=== PATIENT | female | born 1960 | race Caucasian/White ===

== ENCOUNTER 2020-12-21 14:22 | Emergency (ER) | payer OTHER ==
--- OUTSIDE RECORDS SUMMARY | 2020-12-21 14:24 | XMS REPORT | Continuity of Care Document ---
:[address] [facility] t Address [address] [place] [address] Care Team Providers Name Role Phone Doug Neumann DO Attending Clinician Ritesh Luong MD Attending Clinician Doctor Unassigned, Name Attending Clinician Unavailable Taiwo GALDAMEZ Attending Clinician Lab, [facility] [address] Attending Clinician Unavailable Problems This patient has no known problems. Allergies, Adverse Reactions, Alerts This patient has no known allergies or adverse reactions. Medications This patient has no known medications. Procedures This patient has no known procedures. Encounters Start End Encounter Admission Attending Care Care Encounter Source Date/Time Date/Time Type Type Clinicians Facility Department ID 2020-12-17 2020-12-17 Patient BONNIE Neumann [id number] 00:00:00 00:00:00 Outreach Chandrakant NEGRETE [id number] Doug CARE [id number] [place] [id number] 2020-12-05 2020-12-05 Refill BONNIE Luong [id number] 00:00:00 00:00:00 Blanka LOVELL [id number] MEDICINE [id number] [facility] - [id number] [address] 2020-12-05 2020-12-05 Refill Doctor GAFREDRICK [id number] 00:00:00 00:00:00 Unassigned, FAMILY [id number] [place] MEDICINE [id number] [facility] [id number] [address] 2020-10-13 2020-10-13 Telephone Ag [facility] [id number] 00:00:00 00:00:00 Blanka LOVELL [id number] MEDICINE [id number] [place] [id number] [address] 2020-09-26 2020-09-26 Refill Ag [facility] [id number] 00:00:00 00:00:00 Blanka LOVELL [id number] MEDICINE [id number] [place] [id number] [address] 2020-09-23 2020-09-23 Orders Doctor ZAHEER [id number] 00:00:00 00:00:00 Only Unassigned, JENNIFER [id number] [facility] [id number] 2020-09-21 2020-09-21 Telephone Taiwo [facility] [id number] 00:00:00 00:00:00 Sienna LOVELL [id number] MEDICINE [id number] [facility] [id number] [address] 2020-09-19 2020-09-19 Hospital Taiwo [facility] [id number] 13:37:48 23:59:00 Encounter Sienna Alfaro [id number] Pediatric [id number] [place] [id number] 2020-09-19 2020-09-19 [employer] [facility], [place] [facility] [id number] 14:02:45 16:36:32 [place] [facility] [place] FAMILY [id number] MEDICINE [id number] [facility] [id number] [address] Results This patient has no known results.
[2020-12-21 15:00] LABS: Absolute Lymphocytes (CBC) 2.4 K/uL (0.7-4.9); Basophils % 0.6 % (0-1.3); Lymphocytes % 26.8 % (15.3-44.8); MPV 7.9 fL (7.6-11.3); RBC Red Blood Cell Count 4.81 M/uL (3.86-4.86)
[2020-12-21 15:07] LABS: ALT/SGPT 20 U/L (12-78); AST/SGOT 15 U/L (15-37); Albumin 3.4 g/dL (3.4-5.0); Alkaline Phosphatase 70 U/L (45-117); BUN Blood Urea Nitrogen 9 mg/dL (7-18); Bicarbonate 31 mmol/L (21-32); Bilirubin Direct < 0.1 mg/dL (0-0.2); Bilirubin Total 0.3 mg/dL (0.2-1.0); Glucose Level 102 mg/dL (74-106); Magnesium 2.1 mg/dL (1.8-2.4); NT PRO-BNP 51 pg/mL (<125); Potassium 3.9 mmol/L (3.5-5.1); Protein, Total 7.3 g/dL (6.4-8.2); Sodium Level 142 mmol/L (136-145); Troponin (Emerg Dept Use Only) < 0.02 ng/mL (0.0-0.045)
--- NOTE | 2020-12-21 15:16 | RAD REPORT ---
EXAM DESCRIPTION: RAD - Chest Single View - 12/21/2020 2:52 pm CLINICAL HISTORY: CHEST PAIN COMPARISON: None TECHNIQUE: AP portable chest image was obtained 12/21/2020 2:52 pm . FINDINGS: Lungs are clear. Heart and vasculature are normal. No measurable pleural effusion and no p neumothorax. No acute bony abnormality seen. No acute aortic findings suspected. IMPRESSION: No acute cardiopulmonary process.
--- NOTE | 2020-12-21 16:50 | EDPHYS ---
Physician Documentation [facility] Name: Claudia Cha Age: 60 yrs Sex: Female : 1960 Arrival Date: 12/21/2020 Time: 14:22 Bed 8 Private MD: ED Physician Navjot Morris HPI: 12/21 14:26 This 60 yrs old Female presents to ER via Unassigned with complaints of High ps1 Blood Pressure. 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 went to [facility] for elevated ps1 BP. States that she has had intermittent chest pain for last week. Non radiating. Pain seems to be improving. Came in by EMS after staff at [facility] told her that she was having acute UT. No STEMI on EKG. . Historical: - Allergies: 14:30 Bactrim; ss 14:30 PENICILLINS; ss - PMHx: 14:30 Hypertension; ss 14:32 COPD; ss - Immunization history:: Adult Immunizations unknown. - Social history:: Smoking status: Patient reports the use of cigarette tobacco products, smokes one-half pack cigarettes per day. ROS: 14:26 Constitutional: Negative for fever, chills, and weight loss, Eyes: Negative for injury, ps1 pain, redness, and discharge, Respiratory: Negative for shortness of breath, cough, wheezing, and pleuritic chest pain. 14:26 Cardiovascular: Positive for chest pain, with cough. 14:26 Abdomen/GI: Negative for nausea, vomiting, and diarrhea. 14:26 Skin: Negative for rash. 14:26 Neuro: Negative for dizziness. Exam: 14:26 Constitutional: This is a well developed, well nourished patient who is awake, alert, ps1 and in no acute distress. Head/Face: Normocephalic, atraumatic. Cardiovascular: Regular rate and rhythm. No gallops, murmurs, or rubs. Normal PMI, no JVD. No pulse deficits. Respiratory: Lungs have equal breath sounds bilaterally, clear to auscultation and percussion. No rales, rhonchi or wheezes noted. No increased work of breathing, no retractions or nasal flaring. Abdomen/GI: Soft, non-tender, with normal bowel sounds. No distension or tympany. No guarding or rebound. No evidence of tenderness throughout. Skin: Warm, dry with normal turgor. Normal color with no rashes, no lesions, and no evidence of cellulitis. MS/ Extremity: Pulses equal, no cyanosis. Neurovascular intact. Full, normal range of motion. Neuro: Awake and alert, GCS 15, oriented to person, place, time, and situation. Cranial nerves II-XII grossly intact. Sensory grossly intact. Psych: Awake, alert, with orientation to person, place and time. Behavior, mood, and affect are within normal limits. Vital Signs: 14:25 BP 189 / 100; Pulse 86; Resp 16; Temp 98.3(O); Pulse Ox 97% on R/A; Weight 71.67 kg; ss Height 5 ft. 6 in. (167.64 cm); Pain 0/10; 14:25 Body Mass Index 25.50 (71.67 kg, 167.64 cm) ss MDM: 14:26 Patient medically screened. ps1 16:52 Data reviewed: vital signs, nurses notes, EMS record, lab test result(s), EKG, ps1 radiologic studies, and as a result, I will discharge patient. Counseling: I had a detailed discussion with the patient and/or guardian regarding: the historical points, exam findings, and any diagnostic results supporting the discharge/admit diagnosis, the presence of at least one elevated blood pressure reading (>120/80) during this emergency department visit, lab results, radiology results, the need for outpatient follow up, to return to the emergency department if symptoms worsen or persist or if there are any questions or concerns that arise at home, smoking cessation. Special discussion: Based on the patient's history, exam, and Dx evaluation, there is no indication for emergent intervention or inpatient Tx. It is understood by the patient/guardian that if the Sx's persist or worsen they need to return immediately for re-evaluation. 12/21 14:25 Order name: Basic Metabolic Panel 12/21 14:25 Order name: CBC with Diff 12/21 14:25 Order name: LFT's 12/21 14:25 Order name: Magnesium ps1 12/21 14:25 Order name: NT PRO-BNP; Complete Time: 15:21 12/21 14:25 Order name: Troponin (emerg Dept Use Only); Complete Time: 15:21 12/21 14:25 Order name: XRAY Chest (1 view); Complete Time: 15:21 [facility] 12/21 14:25 Order name: EKG; Complete Time: 14:26 [facility] 12/21 14:25 Order name: Cardiac monitoring; Complete Time: 14:33 [facility] 12/21 14:25 Order name: Basic Metabolic Panel; Complete Time: 15:21 [facility] 12/21 14:25 Order name: CBC with Automated Diff; Complete Time: 15:05 [facility] 12/21 14:25 Order name: Liver (Hepatic) Function; Complete Time: 15:21 [facility] 12/21 14:25 Order name: Magnesium; Complete Time: 15:21 [facility] 12/21 15:46 Order name: Troponin (emerg Dept Use Only); Complete Time: 16:48 [facility] 12/21 14:25 Order name: EKG - Nurse/Tech; Complete Time: 14:33 [facility] 12/21 14:25 Order name: IV Saline Lock; Complete Time: 14:32 [facility] 12/21 14:25 Order name: Labs collected and sent; Complete Time: 14: [facility] 12/21 14:25 Order name: O2 Per Protocol; Complete Time: 14:32 [facility] 12/21 14:25 Order name: O2 Sat Monitoring; Complete Time: 14: [facility] 12/21 16:08 Order name: Labs - recollect needed; Complete Time: 16:21 mt Administered Medications: No medications were administered Disposition: 12/21/20 16:49 Discharged to Home. Impression: Atypical chest pain, Hypertension secondary to other renal disorders. - Condition is Stable. - Discharge Instructions: Nonspecific Chest Pain, Hypertension. - Medication Reconciliation Form, Thank You Letter, Antibiotic Education, Prescription Opioid Use form. - Follow up: Emergency Department; When: As needed; Reason: Worsening of condition. Follow up: Anderson Koch MD; When: 48 Hours; Reason: Further diagnostic work-up. - Problem is new. - Symptoms have improved. Signatures: Dispatcher [employer] [facility] Michelle Louis RN RN ss Thompson, Eloy Navjot Wilde MD MD ps1 Corrections: (The following items were deleted from the chart) 16:50 16:49 12/21/2020 16:49 Discharged to Home. Impression: Atypical chest pain. Condition ps1 is Stable. Forms are Medication Reconciliation Form, Thank You Letter, Antibiotic Education, Prescription Opioid Use. Follow up: Emergency Department; When: As needed; Reason: Worsening of condition. Follow up: Anderson Raslan; When: 48 Hours; Reason: Further diagnostic work-up. Problem is new. Symptoms have improved. ps1 16:58 16:50 12/21/2020 16:49 Discharged to Home. Impression: Atypical chest pain; ss Hypertension secondary to other renal disorders. Condition is Stable. Discharge Instructions: Nonspecific Chest Pain, Hypertension. Forms are Medication Reconciliation Form, Thank You Letter, Antibiotic Education, Prescription Opioid Use. Follow up: Emergency Department; When: As needed; Reason: Worsening of condition. Follow up: Anderson Raslan; When: 48 Hours; Reason: Further diagnostic work-up. Problem is new. Symptoms have improved. ps1
--- NOTE | 2020-12-21 16:50 | ER ---
Nurse's Notes [facility] Name: Claudia Cha Age: 60 yrs Sex: Female : 1960 Arrival Date: 12/21/2020 Time: 14:22 Bed 8 Private MD: Diagnosis: Atypical chest pain;Hypertension secondary to other renal disorders Presentation: 12/21 14:25 Chief complaint: Patient states: "I was in group therapy and they came to get me for an ss EKG because my blood pressure has been high and they told me I was having a heart attack." Pt denies CP. Reports she is in rehab detoxing from ETOH and opioids. Coronavirus screen: Client denies travel out of the [place] in the last 14 days. Ebola Screen: Patient denies exposure to infectious person. Patient denies travel to an Ebola-affected area in the 21 days before illness onset. Initial Sepsis Screen: Does the patient meet any 2 criteria? No. Patient's initial sepsis screen is negative. Does the patient have a suspected source of infection? No. Patient's initial sepsis screen is negative. Risk Assessment: Do you want to hurt yourself or someone else? Patient reports no desire to harm self or others. Onset of symptoms is unknown. 14:25 Method Of Arrival: EMS: [facility] 14:25 Acuity: [facility]CHA 3 ss Historical: - Allergies: 14:30 Bactrim; ss 14:30 PENICILLINS; ss - PMHx: 14:30 Hypertension; ss 14:32 COPD; ss - Immunization history:: Adult Immunizations unknown. - Social history:: Smoking status: Patient reports the use of cigarette tobacco products, smokes one-half pack cigarettes per day. Screenin:32 Abuse screen: Denies threats or abuse. Denies injuries from another. Nutritional ss screening: No deficits noted. Tuberculosis screening: Never had TB. Fall Risk None identified. Assessment: 14:30 General: Appears in no apparent distress. comfortable, Behavior is calm, cooperative, ss Denies fever, feeling ill, fatigue, chills. Pain: Denies pain. Neuro: Level of Consciousness is awake, alert, obeys commands, Oriented to person, place, time, situation, Enterprise Business Architect are equal bilaterally Speech is normal, Facial symmetry appears normal. Cardiovascular: Capillary refill < 3 seconds is brisk in bilateral fingers Patient's skin is warm and dry. Respiratory: Airway is patent Trachea midline Respiratory effort is even, unlabored, Respiratory pattern is regular, symmetrical. GI: Abdomen is non-distended, Patient currently denies diarrhea, nausea, vomiting. : No signs and/or symptoms were reported regarding the genitourinary system. EENT: Nares are clear Oral mucosa is moist. Derm: Skin is intact, is healthy with good turgor, Skin is dry, Skin is pink, warm \\T\\ dry. normal. Musculoskeletal: Circulation, motion, and sensation intact. Range of motion: intact in all extremities, Swelling absent. 15:15 Reassessment: Patient appears in no apparent distress at this time. Patient and/or hb family updated on plan of care and expected duration. Pain level reassessed. Patient is alert, oriented x 3, equal unlabored respirations, skin warm/dry/pink. Vital Signs: 14:25 BP 189 / 100; Pulse 86; Resp 16; Temp 98.3(O); Pulse Ox 97% on R/A; Weight 71.67 kg; ss Height 5 ft. 6 in. (167.64 cm); Pain 0/10; 14:25 Body Mass Index 25.50 (71.67 kg, 167.64 cm) ED Course: 14:22 Patient arrived in ED. ds1 14:24 Navjot Morris MD is Attending Physician. ps1 14:25 Michelle Louis, LYNDA is Primary Nurse. ss 14:29 Triage completed. ss 14:30 Arm band placed on right wrist. ss 14:32 Patient has correct armband on for positive identification. Bed in low position. Call ss light in reach. cafeteria monitor on. Pulse ox on. NIBP on. 14:36 Liver (Hepatic) Function Sent. ml 14:36 Magnesium Sent. ml 14:36 Basic Metabolic Panel Sent. ml 14:36 CBC with Automated Diff Sent. ml 14:37 Basic Metabolic Panel Sent. ml 14:37 CBC with Diff Sent. ml 14:37 LFT's Sent. ml 14:37 Magnesium Sent. ml 14:37 NT PRO-BNP Sent. ml 14:37 Troponin (emerg Dept Use Only) Sent. ml 14:38 XRAY Chest (1 view) Sent. ml 14:41 XRAY Chest (1 view) In Process Unspecified. EDMS 16:49 Anderson Koch MD is Referral Physician. ps1 16:57 No provider procedures requiring assistance completed. IV discontinued, intact, ss bleeding controlled, No redness/swelling at site. Pressure dressing applied. Administered Medications: No medications were administered Outcome: 16:49 Discharge ordered by . ps1 16:57 Discharged to home ambulatory. ss 16:57 Condition: good 16:57 Discharge instructions given to patient, Instructed on discharge instructions, follow up and referral plans. Demonstrated understanding of instructions, follow-up care. 16:58 Patient left the ED. ss Signatures: Dispatcher [employer] [facility] Valery Mohr ds1 Carmen Camargo Shelby, RN RN Dipika Cabrera RN RN hb Singer, Phillip, MD MD ps1
[2020-12-21 17:23] VITALS: BP 189/100; TEMP 98.3; O2SAT 97
== END 2020-12-21 16:58 | disposition home or self-care (01) ==
LOC: ER 14:22
DX: I15.1 Hypertension secondary to other renal disorders (principal); N28.9 Disorder of kidney and ureter, unspecified; R07.89 Other chest pain; F17.210 Nicotine dependence, cigarettes, uncomplicated; J44.9 Chronic obstructive pulmonary disease, unspecified
CPT/HCPCS: 36415; 71045; 80048; 80076; 83735; 83880; 84484; 85025; 93005; 99284